=== PATIENT | female | born 1995 | race Caucasian/White ===

== ENCOUNTER 2016-06-10 10:21 | Emergency (ER) | END 2016-06-10 17:36 | disposition left against medical advice (07) | DX: Z53.21 Procedure and treatment not carried out due to patient leaving prior to being seen by health care provider (principal) ==

== ENCOUNTER 2016-06-10 21:10 | Emergency (ER) | payer OTHER ==
[~2016-06-10] VITALS: Ht 167.6 cm; Wt 92.0 kg
[2016-06-10 21:17] VITALS: Ht 167.6 cm; Wt 92.0 kg
[2016-06-10] MEDS ORDERED: CEPH-443 PO (22:57)
[2016-06-10] MEDS ORDERED: IBUP-1542 PO (22:57)
[2016-06-10] MEDS ORDERED: HYDR28OI2 TP (22:57)
[2016-06-10] MEDS ORDERED: BACTDS PO (22:57)
--- NOTE | 2016-06-11 00:01 | ERA ---
ER Documentation Chief Complaint Date/Time DATE: 06/10/16 TIME: 23:58 Chief Complaint Pt with spider bite to L lateral leg X 1 week. HPI Patient presents 1 week after being bit by a spider. Patient says that the area around the bite is decently painful. It is not aesthetically pleasing. Patient has not done anything to relieve the symptoms. ROS All systems reviewed and are negative except as per history of present illness. Medications Home Meds Active Scripts Ibuprofen* (Ibuprofen*) 600 Mg Tablet, 600 MG PO Q6H Y for PAIN for 7 Days, TAB Prov:ADALBERTO ADKINS PA-C 06/10/16 Hydrocortisone Acetate (Hydrocortisone) 28 Gm Oint...g., 28 GM TP BID for 7 Days Prov:ADALBERTO ADKINS PA-C 06/10/16 Sulfamethoxazole-Trimethoprim* (Bactrim* DS) 800-160 Mg Tab, 1 TAB PO DAILY for 5 Days, TAB Prov:ADALBERTO ADKINS PA-C 06/10/16 Cephalexin* (Keflex*) 500 Mg Capsule, 500 MG PO QID for 5 Days, CAP Prov:ADALBERTO ADKINS PA-C 06/10/16 PMhx/Soc Medical and Surgical Hx: pt denies Medical Hx, pt denies Surgical Hx Hx Alcohol Use: Yes Hx Substance Use: No Hx Tobacco Use: No Smoking Status: Never smoker Physical Exam Vitals Vital Signs Date Time Temp Pulse Resp B/P Pulse Ox O2 Delivery O2 Flow Rate FiO2 06/10/16 21:17 97.8 82 18 119/63 100 Physical Exam Const: [] Head: Atraumatic Eyes: Normal Conjunctiva ENT: Normal External Ears, Nose and Mouth. Neck: Full range of motion..~ No meningismus. Resp: Clear to auscultation bilaterally Cardio: Regular rate and rhythm, no murmurs Abd: Soft, non tender, non distended. Normal bowel sounds Skin: Spider bite on the lateral thigh that is 5 mm in diameter yellow in the center with palpable edges and no erythema of the skin around the affected area. Back: No midline or flank tenderness Ext: No cyanosis, or edema Neur: Awake and alert Psych: Normal Mood and Affect Procedures/MDM Patient spider bite is consistent with a brown recluse. The greater does not look infected and the necrotic debris is is almost gone. At this time I recommend that the patient take Bactrim and Keflex for infection prophylaxis. Also hydrocortisone cream to relieve any inflammation. Also prescribed ibuprofen for discomfort. Have advised the patient that if symptoms worsen or if the area becomes infected to return to the emergency department immediately. Departure Diagnosis: Primary Impression: Brown recluse spider bite Condition: Stable Patient Instructions: Brown Recluse Spider Bite Additional Instructions: Return to emergency department if lesion becomes infected or symptoms worsen. ADALBERTO ADKINS PA-C Jun 11, 2016 00:00
== END 2016-06-10 23:34 | disposition home or self-care (01) ==
LOC: FTE 21:10
DX: T63.331A Toxic effect of venom of brown recluse spider, accidental (unintentional), initial encounter (principal)
CPT/HCPCS: 99284

== ENCOUNTER 2017-03-06 20:39 | Emergency (ER) | payer SELFPAY ==
[~2017-03-06] VITALS: Ht 162.6 cm; Wt 90.2 kg
[~2017-03-06 20:39] MED LIST: BACTDS PO; CEPH-443 PO; HYDR28OI2 TP; IBUP-1542 PO
[2017-03-06 20:44] VITALS: Ht 162.6 cm; Wt 90.2 kg
== END 2017-03-07 00:56 | disposition left against medical advice (07) ==
LOC: FTE 20:39
DX: Z53.21 Procedure and treatment not carried out due to patient leaving prior to being seen by health care provider (principal)